=== PATIENT | male | born 1945 | race Hispanic/Latino ===

== ENCOUNTER 2018-06-21 21:07 | Observation (INO) | payer MEDICARE, BC ==
[2018-06-21 21:21] VITALS: BMI 35.4
--- NOTE | 2018-06-21 22:43 | ED PDOC ---
Arrival/HPI - General Chief Complaint: Trauma Time Seen by Provider: 06/21/18 21:31 Historian: Patient - History of Present Illness Narrative History of Present Illness (Text): 06/21/18 21:35 Naun Loco is a 73 year old male, whose past medical history includes atrial fibrillation, who presents to the Emergency department status post near-syncopal episode today. Patient states he was at [facility] in [place], getting ready to go home earlier today. Patient states while walking in his hotel room his suddenly fainted but did not completely lose consciousness, notes he was still awake, alert, and aware of his surrounding. Patient reports he fell to the ground and hit his head. did not witness the episode, states she heard the noise when fell. states she found him and notes he was awake and alert. Patient states he was fine throughout the day prior to fall, notes he ate lunch normally. Patient denies any dizziness, headache, or chest pain prior to the near-syncopal episode. Patient states his hotel room was very hot and attributes the near-syncopal episode to this. Patient also denies any fever, nausea, vomiting, or any other complaints. PMD Andrea Peer Tutor Isela Symptom Onset: Sudden Symptom Course: Improving Activities at Onset: Light Context: Home Past Medical History - Provider Review Nursing Documentation Reviewed: Yes - Cardiac Hx Cardiac Disorders: Yes Hx Atrial Fibrillation: Yes Hx Hypertension: Yes - Neurological Hx Syncope: Yes - Renal Other/Comment: Overactive Bladder - Musculoskeletal/Rheumatological Hx Arthritis: Yes Hx Back Pain: Yes - Psychiatric Hx Anxiety: Yes Hx Depression: Yes Hx Substance Use: No Family/Social History - Physician Review Nursing Documentation Reviewed: Yes Family/Social History: Unknown Family HX Smoking Status: Never Smoked Hx Alcohol Use: Yes (Wine) Frequency of alcohol use: Few days per week Hx Substance Use: No Allergies/Home Meds Allergies/Adverse Reactions: Allergies No Known Allergies Allergy (Verified 06/21/18 21:19) Home Medications: Home Meds Medication Instructions Recorded Confirmed Alprazolam [Xanax] 0.5 mg PO BID PRN 06/21/18 06/21/18 Carvedilol [Coreg] 12.5 mg PO DAILY 06/21/18 06/21/18 Cyclobenzaprine [Cyclobenzaprine 10 mg PO TID PRN 06/21/18 06/21/18 HCl] Gabapentin [Neurontin] 300 mg PO TID 06/21/18 06/21/18 Losartan [Cozaar] 40 mg PO DAILY 06/21/18 06/21/18 Losartan/Hydrochlorothiazide 1 each PO BID 06/21/18 06/21/18 [Losartan-Hctz 50-12.5 mg Tab] Meloxicam [Mobic] 15 mg PO DAILY PRN 06/21/18 06/21/18 Oxybutynin XL [Ditropan XL] 10 mg PO DAILY 06/21/18 06/21/18 Sertraline [Zoloft] 50 mg PO DAILY 06/21/18 06/21/18 Simvastatin [Zocor] 40 mg PO HS 06/21/18 06/21/18 Warfarin [Coumadin] 5 mg PO DAILY 06/21/18 06/21/18 Review of Systems - Physician Review All systems were reviewed & negative as marked: Yes - Review of Systems Constitutional: Normal. absent: Fevers Respiratory: Normal. absent: SOB, Cough Cardiovascular: Syncope (+near-syncopal) Gastrointestinal: Normal. absent: Nausea, Vomiting Neurological: Normal. absent: Headache, Dizziness Physical Exam Vital Signs Reviewed: Yes Vital Signs Temp Pulse Resp BP Pulse Ox 06/21/18 21:21 98.4 F 102 H 20 139/74 97 Temperature: Afebrile Blood Pressure: Normal Pulse: Regular Respiratory Rate: Normal Appearance: Positive for: Well-Appearing, Non-Toxic, Comfortable Pain Distress: None Mental Status: Positive for: Alert and Oriented X 3 - Systems Exam Head: Present: Atraumatic, Normocephalic Pupils: Present: PERRL Extroacular Muscles: Present: EOMI Conjunctiva: Present: Normal Mouth: Present: Moist Mucous Membranes Neck: Present: Normal Range of Motion. No: Meningeal Signs, MIDLINE TENDERNESS, Paraspinal Tenderness Respiratory/Chest: Present: Clear to Auscultation, Good Air Exchange. No: Respiratory Distress, Accessory Muscle Use Cardiovascular: Present: Regular Rate and Rhythm, Normal S1, S2. No: Murmurs Abdomen: No: Tenderness, Distention, Peritoneal Signs Back: Present: Normal Inspection. No: CVA Tenderness, Midline Tenderness, Paraspinal Tenderness Upper Extremity: Present: Normal Inspection. No: Cyanosis, Edema Lower Extremity: Present: Normal Inspection. No: Edema Neurological: Present: GCS=15, CN II-XII Intact, Speech Normal, Motor Func Grossly Intact, Normal Sensory Function, Normal Cerebellar Funct Skin: Present: Warm, Dry, Normal Color. No: Rashes Psychiatric: Present: Alert, Oriented x 3, Normal Insight, Normal Concentration Medical Decision Making ED Course and Treatment: 06/21/18 21:35 Impression: 73 year old male presents status post near-syncopal episode today. Plan: -- CT Head w/o contrast -- EKG -- Chest X-ray -- Labs, cardiac enzymes, BNP -- Urinalysis, urine cultures -- Reassess and disposition Progress Notes: CXR : NAD. EKG : A fib w/ PVCs at 95 bpm, no acute ST changes. Labs reviewed and wnl. On reevaluation, patient is smiling, remains awake alert and oriented 3 in no acute distress. Repeat neuro exam shows no focal findings. Diagnostic results d/w the patient. Case d/w Dr. Fierro, she agrees with plan for observation to remote tele with consult to Dr. Weiss. Bridge orders placed. Patient is in agreement with plan for further observation. - RAD Interpretation Narrative RAD Interpretations (Text): CT Head: Findings: The ventricles and sulci are symmetric but prominent in size bilaterally. There are periventricular areas of low attenuation throughout the deep white matter. There is no evidence of acute hemorrhage or infarct. There is no midline shift, mass effect, or extra-axial fluid collection. The osseous structures are unremarkable. The visualized paranasal sinuses demonstrated diffuse fluid and mucosal thickening, most severe in the right maxillary sinus, left sphenoid sinus and ethmoid sinuses bilaterally. Impression: 1. No acute hemorrhage or infarct. Findings are consistent with mild age-related atrophy and chronic small vessel ischemic disease. 2. Sinusitis. Electronically signed on Jun 22, 2018 12:03:19 AM EST by: Rodrick Coates M.D., MARIA L Certified By ABR & CBCCT Fellowship Trained MRI and CT Specialist Radiology Orders: 06/21/18 21:31 HEAD W/O CONTRAST [CT] Stat 06/21/18 21:36 CHEST ONE VIEW [RAD] Stat Manager Reliability: Radiologist - PA / REVOLVING FI[employer] ASSEMBLER / Resident Statement MD/DO has reviewed & agrees with the documentation as recorded. - Scribe Statement The provider has reviewed the documentation as recorded by the Wanda Jaramillo Provider Scribe Attestation: All medical record entries made by the Husseinibkaitlin were at my direction and personally dictated by me. I have reviewed the chart and agree that the record accurately reflects my personal performance of the history, physical exam, medical decision making, and the department course for this patient. I have also personally directed, reviewed, and agree with the discharge instructions and disposition. Disposition/Present on Arrival - Present on Arrival Any Indicators Present on Arrival: No History of DVT/PE: No History of Uncontrolled Diabetes: No Urinary Catheter: No History of Decub. Ulcer: No History Surgical Site Infection Following: None - Disposition Have Diagnosis and Disposition been Completed?: Yes Diagnosis: Near syncope, Head injury Disposition: HOSPITALIZED Disposition Time: 00:00 Patient Plan: Observation (to remote tele) Condition: STABLE
[2018-06-21 22:54] LABS: BASO # 0.01 K/mm3 (0.0-2.0); BASO % 0.1 % (0.0-3.0); EOS % 0.2 % (1.5-5.0); GRAN # 10.29 (1.4-6.5); GRAN % 77.8 % (50.0-68.0); HEMOGLOBIN 14.4 g/dL (14.0-18.0); LYMPH # 1.4 (1.2-3.4); LYMPH % 10.9 % (22.0-35.0); MEAN CELL VOLUME 101.2 fl (80.0-105.0); MEAN CORPUSCULAR HEMOGLOBIN 34.2 pg (25.0-35.0); MEAN CORPUSCULAR HGB CONC 33.8 g/dl (31.0-37.0); MEAN PLATELET VOLUME 9.7 fl (7.0-11.0); MONO # 1.5 (0.1-0.6); RBC 4.21 10^6/uL (3.5-6.1); RED CELL DISTRIBUTION WIDTH 13.3 % (11.5-14.5); WHITE BLOOD COUNT 13.2 10^3/uL (4.5-11.0)
[2018-06-21 23:02] LABS: INR 2.82; PARTIAL THROMBOPLASTIN TIME 44.7 Seconds (25.1-36.5); PROTHROMBIN TIME 32.8 SECONDS (9.4-12.5)
[2018-06-21 23:03] LABS: ALB/GLOB RATIO 1.3 (1.1-1.8); ALBUMIN 4.2 g/dL (3.0-4.8); ALT/SGPT 46 U/L (7-56); AST/SGOT 53 U/L (17-59); BLOOD UREA NITROGEN 21 mg/dL (7-21); CALCIUM 9.2 mg/dL (8.4-10.5); GFR NON-AFRICAN AMERICAN > 60
[2018-06-21 23:14] LABS: B-TYPE NATRIURETIC PEPTIDE 1020 pg/mL (0-450); TROPONIN I 0.02 ng/mL
[2018-06-21 23:21] LABS: CK-MB 8.6 ng/mL (0.0-3.6)
[2018-06-21 23:51] LABS: URINE BILIRUBIN NEGATIVE (NEGATIVE); URINE BLOOD MODERATE (NEGATIVE); URINE GLUCOSE (UA) NEGATIVE (NEGATIVE); URINE LEUKOCYTE ESTERASE MODERATE Leu/uL (NEGATIVE); URINE PROTEIN NEGATIVE mg/dL (<30 mg/dL); URINE UROBILINOGEN 0.2 E.U./dL (<1 E.U./dL)
[2018-06-21 23:58] LABS: URINE APPEARANCE SL CLOUDY (CLEAR); URINE COLOR YELLOW (YELLOW)
[2018-06-22 00:08] LABS: URINE BACTERIA MANY (NEG); URINE EPITHELIAL CELLS 0 - 2 /hpf (0-5)
[2018-06-22 02:33] VITALS: RESP 20
[2018-06-22 07:14] VITALS: O2SAT 96
[2018-06-22 08:11] LABS: INR 2.4; PROTHROMBIN TIME 28.1 SECONDS (9.4-12.5)
--- NOTE | 2018-06-22 09:05 | CT ---
Date of service: 06/21/2018 PROCEDURE: CT HEAD WITHOUT CONTRAST. HISTORY: trauma COMPARISON: None available. TECHNIQUE: Axial computed tomography images were obtained through the head/brain without intravenous contrast. Radiation dose: Total exam DLP = 910.99 mGy-cm. This CT exam was performed using one or more of the following dose reduction techniques: Automated exposure control, adjustment of the mA and/or kV according to patient size, and/or use of iterative reconstruction technique. FINDINGS: HEMORRHAGE: No intracranial hemorrhage. BRAIN: No mass effect or edema. No atrophy or chronic microvascular ischemic changes. VENTRICLES: Unremarkable. No hydrocephalus. CALVARIUM: Unremarkable. PARANASAL SINUSES: Sinus disease. MASTOID AIR CELLS: Unremarkable as visualized. No inflammatory changes. OTHER FINDINGS: None. IMPRESSION: No acute intracranial hemorrhage.
--- NOTE | 2018-06-22 09:15 | CARD ---
APPROVED REPORT Date of service: 06/21/2018 EKG Measurement Heart [id number] <Conclusion> Atrial fibrillation with premature ventricular or aberrantly conducted complexes Left anterior fascicular block Abnormal ECG
--- NOTE | 2018-06-22 09:35 | RAD ---
Date of service: 06/21/2018 PROCEDURE: CHEST RADIOGRAPH, 1 VIEW HISTORY: fall COMPARISON: None available. FINDINGS: LUNGS: Clear. PLEURA: No pneumothorax or pleural fluid seen. CARDIOVASCULAR: No aortic atherosclerotic calcification present. Normal. OSSEOUS STRUCTURES: No significant abnormalities. VISUALIZED UPPER ABDOMEN: Normal. OTHER FINDINGS: None. IMPRESSION: No active disease.
--- NOTE | 2018-06-22 12:53 | CON ---
DATE: 06/22/2018 INDICATION: Syncope. HISTORY OF PRESENT ILLNESS: This is a 73-year-old male, known to our practice with chronic AFib, on warfarin, who experienced a syncopal episode yesterday while in [place]. He was in his hotel room and slumped to the floor. He does not remember what happened. This was witnessed by several people. He hit his head when he fell, he woke up, he felt well, and did not remember what happened, he limoed back to [place] and was taken to the emergency room and admitted to telemetry. This morning he feels well. He does not remember the events. He had no chest pain or shortness of breath that he recalls. No palpitations. This morning, he is asymptomatic. There is no chest pain, shortness of breath, orthopnea, lightheadedness, dizziness, vertigo, edema, claudication, fever, chills, cough, sputum production, hemoptysis, abdominal pain, nausea, vomiting, diarrhea, constipation, or melena. PAST MEDICAL HISTORY: His past medical history is notable for chronic AFib, he is on warfarin. He has a history of hypertension, hyperlipidemia, CAD with remote PCI, mild MR, neuropathy, sleep apnea and obesity. There is no history of rheumatic fever, myocardialinfarction, angina, congestive heart failure, diabetes, stroke, TIA or gout. MEDICATIONS: At the time of admission include Xanax, Coreg, cyclobenzaprine, gabapentin, losartan/HCT, Mobic, Ditropan, Zoloft, Zocor, warfarin. ALLERGIES: NO MEDICATION ALLERGIES REPORTED. SOCIAL HISTORY: He lives at home. He is retired. He is ambulatory. He does not smoke. He drinks wine socially, often several times in a week. He consumed alcohol yesterday, but not a lot he says. FAMILY HISTORY: Noncontributory. REVIEW OF SYSTEMS: Ten-point review of systems otherwise unremarkable except as noted above. PHYSICAL EXAMINATION: GENERAL: He is a well-developed male, lying in bed in telemetry, in no acute distress. VITAL SIGNS: Notable for AFib, 73-102 beats per minute, afebrile. Blood pressure 113/74, respirations 20, O2 sat is 96-98% on room air. HEENT: Exam reveals no neck vein distention, thyromegaly, or carotid bruits. Mucous membranes moist. Conjunctivae pink. NECK: Supple. LUNGS: Lung gomran clear. HEART: Examination of the heart revealed normal first and second heart sounds, irregular rate, PMI not palpable. ABDOMEN: Soft. Bowel sounds present. No mass, organomegaly, tenderness, rebound, guarding, CVA tenderness, or palpable abdominal aortic aneurysm. EXTREMITIES: Exam revealed no cyanosis, clubbing or edema. NEUROLOGICAL: Awake, alert, oriented. PSYCHIATRIC: Normal as to mood and affect. SKIN: Warm and dry. No rash or cellulitis. LABORATORY AND IMAGING STUDIES: A chest x-ray was done, it is not interpreted yet. There is no CHF, pneumonia or infiltrate by my reading. A CT scan of the head was done. Apparently, it was unremarkable in the ER, but the formal reading is not yet available. White count elevated at 13,200, hemoglobin 14.4, hematocrit 42.6, platelet count 126,000, INR 2.8 yesterday, 2.4 today. PT 28.1, PTT 44.7. Electrolytes, BUN, creatinine, blood sugar, magnesium, LFTs, all unremarkable except for total bilirubin of 1.8. CK was elevated at 285. Troponins were negative x2. BNP 1020. Urinalysis is noted and is abnormal. IMPRESSION: Naun Loco is a 73-year-old man with chronic atrial fibrillation on Coumadin, who suffered a syncopal episode while in his hotel room in [place]. This was witnessed. He does not recall the events. Apparently, he passed out briefly, but felt well and travels alone in a Limo car and was taken to the emergency room in [facility]. Subsequently, he has felt well. Telemetry has been benign. PLAN: At this time, he will have postural vital signs. We will continue his usual medications, that is we will continue his usual cardiac medications including carvedilol, warfarin, losartan/hydrochlorothiazide, Lipitor and replace with Zocor, Xanax, Ditropan. I will review his office records. He can be out of bed and ambulate if his postural vital signs are unremarkable. A CT scan of the head was done, we await the formal report. I will order an echocardiogram. The stress test is scheduled for August. I will discuss possibly moving this up in view of his recent symptomatology. Manuel Mehta MD [facility]
--- NOTE | 2018-06-22 18:14 | US ---
PROCEDURE: Bilateral carotid artery duplex ultrasound HISTORY: Carotid stenosis syncope PHYSICIAN(S): Luis White MD. TECHNIQUE: Duplex sonography and color-flow Doppler were used to evaluate the carotid bifurcations and limited segments of the vertebral arteries bilaterally. The exam is somewhat limited by tortuous vessels. FINDINGS: There is moderate smooth heterogeneous plaque noted at the carotid bifurcations bilaterally. The peak systolic velocity in the proximal right internal carotid artery is 146 cm/sec. This corresponds to a 40-59 percent proximal right ICA stenosis. Normal systolic velocities are noted in the proximal right external carotid artery. There is antegrade flow in the right vertebral artery. The peak systolic velocity in the proximal left internal carotid artery is 94 cm/sec. This corresponds to a 20 to 39% proximal left ICA stenosis. Normal systolic velocities are noted in the proximal left external carotid artery. There is antegrade flow in the left vertebral artery. IMPRESSION: 1. 40-59 percent proximal right ICA stenosis 2. 20-39 percent proximal left ICA stenosis 3. Antegrade flow in both vertebral arteries.
--- NOTE | 2018-06-23 00:17 | HP ---
DATE OF EXAM: 06/22/2018 HISTORY OF PRESENT ILLNESS: The patient is 73 years old who went to [place] yesterday while he was at the bathroom family heard the bang and when they opened the bathroom, he was on the floor. The patient stated he did not lose consciousness. He has a bad right hip, he lost balance and he fell. Denies any loss of consciousness. He denies any dizziness. He states his son and grandson helped him to get up. Family brought him to [place] and brought to emergency room for further evaluation. By the time I examined the patient, he is doing well and wanting to go home. Denies any chest pain. No nausea or vomiting. No diarrhea. PAST MEDICAL HISTORY: Significant for: 1. Chronic atrial fibrillation. 2. Hypertension. 3. Hyperlipidemia. 4. History of severe right hip arthritis. 5. Congestive heart failure. 6. Anm-ldrlioz-rikofqbkh diabetes. MEDICATIONS AT HOME: He is on Xanax, Coumadin 5 mg daily, Zocor 40 mg daily, Zoloft 50 mg daily, oxybutynin 10 mg at bedtime, mg daily, losartan 50 mg daily, Neurontin 300 three times a day, carvedilol 12.5 daily, and Xanax 0.25 twice a day. SOCIAL HISTORY: He socially drinks, he used to be a heavy smoker. PHYSICAL EXAMINATION: GENERAL: He is awake, alert, oriented, and able to communicate. VITAL SIGNS: He is afebrile, pulse 70, respirations 20, and blood pressure 128/88. LABORATORY DATA: WBC 13.2, hemoglobin 14, hematocrit 42, and platelet 126,000. PT 28.1 and INR 2.40. Chemistry: Sodium 138, potassium 4.5, chloride 102, CO2 of 30, BUN 21, creatinine 0.8, blood sugar , total bilirubin . LDH is 714. CPK 285. BNP 1020. Urinalysis showed moderate blood, positive nitrites and leukocytes. ASSESSMENT: 1. Questionable syncope. 2. Status post fall. 3. Chronic atrial fibrillation. 4. Severe right hip osteoarthritis. 5. Congestive heart failure. PLAN: We will monitor his blood pressure. Continue Coumadin. Monitor PT and INR. Encourage physical therapy. Follow up with , echocardiogram and we will reevaluate in a.m. Morgan Fierro MD [facility] # [phone]
[2018-06-23 06:55] VITALS: BP 139/88; TEMP 97.5
--- NOTE | 2018-06-23 08:03 | CP.PCM.PN ---
Subjective - Date & Time of Evaluation Date of Evaluation: 06/23/18 Time of Evaluation: 07:00 - Subjective Subjective: Stable on 3R. He feels better and wants to go home. No CP,m SOB, Dizziness, Syncope V/S noted. NL postural V/S noted PE: Lungs: clear Cor.: S1S2 Abd.: soft Ext.: no edema Neuro.: alert Labs 06/22 noted: INR= 2.4, trops neg X2 Car. U/S noted: Mod/Mild carotid stenoses Echo: Nl LV. See full report. Objective - Vital Signs/Intake and Output Vital Signs (last 24 hours): Temp Pulse Resp BP Pulse Ox 97.5 F L 80 20 139/88 96 06/23/18 06:00 06/23/18 06:00 06/23/18 06:00 06/23/18 06:00 06/23/18 06:00 - Medications Medications: Current Medications Alprazolam (Xanax) 0.5 mg PO BID PRN; Protocol PRN Reason: Anxiety Alprazolam (Xanax) 0.5 mg PO BID PRN; Protocol PRN Reason: Anxiety Atorvastatin Calcium (Lipitor) 40 mg PO DIN [facility] Last Admin: 06/22/18 18:04 Dose: 40 mg Atorvastatin Calcium (Lipitor) 20 mg PO HS [facility] Carvedilol (Coreg) 12.5 mg PO DAILY [facility] Gabapentin (Neurontin) 300 mg PO TID [facility]; Protocol Hydrochlorothiazide (Microzide) 12.5 mg PO DAILY [facility] Last Admin: 06/22/18 10:28 Dose: 12.5 mg Losartan Potassium (Cozaar) 50 mg PO DAILY [facility] Meloxicam (Mobic) 15 mg PO DAILY PRN PRN Reason: Arthritis Non-Formulary Medication (Oxybutynin Xl [Ditropan Xl]) 10 mg PO DAILY [facility] Oxybutynin Chloride (Ditropan Tab) 10 mg PO DAILY [facility] Last Admin: 06/22/18 10:28 Dose: 10 mg Sertraline HCl (Zoloft) 50 mg PO DAILY [facility] Warfarin Sodium (Coumadin) 5 mg PO 1800 [facility]; Protocol Last Admin: 06/22/18 18:04 Dose: 5 mg - Labs Labs: 06/21/18 22:41 06/21/18 22:41 PT 28.1 SECONDS (9.4-12.5) H 06/22/18 07:50 INR 2.40 06/22/18 07:50 APTT 44.7 Seconds (25.1-36.5) H 06/21/18 22:41 Assessment and Plan - Assessment and Plan (Free Text) Assessment: Syncope in AC Chronic AF Mild MR HBP HLD CAD/Remote PCI Neuropathy CORI Abn U/A: urine culture pending. Plan: OOB ad kamaljit Out-pt nuclear stress test soon. Call re further sxs.
--- NOTE | 2018-06-23 09:30 | CARD ---
APPROVED REPORT Date of service: 06/22/2018 EXAM: Two-dimensional and M-mode echocardiogram with Doppler and color Doppler. Other Information Quality : AverageRhythm : INDICATION Syncope 2D DIMENSIONS Left Atrium (2D)4.4 (1.6-4.0cm)IVSd1.1 (0.7-1.1cm) LVDd5.4 (3.9-5.9cm)PWd1.2 (0.7-1.1cm) LVDs3.6 (2.5-4.0cm)FS (%) 33.6 % LVEF (%)62.0 (>50%) M-Mode DIMENSIONS Aortic Root3.80 (2.2-3.7cm)Aortic Cusp Exc.1.90 (1.5-2.0cm) Aortic Valve AoV Peak Tzoennlm551.0cm/s Mitral Valve E/A ratio0.0 TDI E/Lateral E'0.0E/Medial E'0.0 Pulmonary Valve PV Peak Fzekimgp76.4cm/sPV Peak Grad.3mmHg Tricuspid Valve TR Peak [id number]/sRAP [id number] Peak Gr.33mmHg [id number] LEFT VENTRICLE The left ventricle is normal size. There is normal left ventricular wall thickness. The left ventricular function is normal. The left ventricular ejection fraction is within the normal range. There is normal LV segmental wall motion. RIGHT VENTRICLE The right ventricle is normal size. ATRIA The left atrium is moderately dilated. The right atrium is mildly dilated. The interatrial septum is intact with no evidence for an atrial septal defect. AORTIC VALVE The aortic valve is normal in structure. MITRAL VALVE The mitral valve is normal in structure. Mitral regurgitation is mild. TRICUSPID VALVE The tricuspid valve is normal in structure. There is mild tricuspid regurgitation. PULMONIC VALVE The pulmonic valve is not well visualized. GREAT VESSELS The aortic root is normal in size. PERICARDIAL EFFUSION There is no pericardial effusion. <Conclusion> The left ventricle is normal size. There is normal left ventricular wall thickness. The left ventricular function is normal. Mitral regurgitation is mild. There is mild tricuspid regurgitation.
[2018-06-23] MEDS ORDERED: OXYBUTYNIN 10 MG PO SCH (10:00)
[2018-06-23 10:47] VITALS: PULSE 85
--- NOTE | 2018-06-23 21:02 | DS ---
HISTORY OF PRESENT ILLNESS: The patient is 73 years old who was admitted because of near syncope, although the patient statement is different than the family's statement. The patient states he was in the bathroom, he lost balance since he has a bad left hip and he was found on the floor when family heard the bang, they came in and helped him to get up. He was in [place], they drove back to [place] and was evaluated in the ER. His initial workup is unremarkable, wanted to go home, feels fine, and ambulatory. PHYSICAL EXAMINATION: VITAL SIGNS: He is afebrile, pulse 85, respirations 20, and blood pressure 139/88. LUNGS: Bilateral fair airflow. No rhonchi or crackles. HEART: S1 and S2 audible. ABDOMEN: Soft, obese, and nontender. No rebound. No guarding. NEUROLOGIC: The patient is awake, alert, oriented, communicative, and ambulatory. LABORATORY DATA: His PT 28.1 and INR 2.40. His urine culture shows positive Gram-negative rods. ASSESSMENT: 1. Status post near-syncope. 2. Hypertension. 3. Chronic atrial fibrillation. 4. Right hip osteoarthritis. 5. Hypertension. 6. Hyperlipidemia. 7. Benign prostatic hypertrophy. PLAN: The patient is being discharged home today. We will resume his medication including warfarin, Zocor, Zoloft, oxybutynin, Mobic, losartan, gabapentin, Flexeril, carvedilol, and Xanax. The patient will discharge today; however, I did not have culture and sensitivity back here, so I will contact the patient to order for antibiotic. Morgan Fierro MD
== END 2018-06-23 11:41 | disposition home or self-care (01) ==
LOC: ED 21:07 → ERH 06-22 00:15 → 3RSO 06-22 00:50
PROVIDERS: ADMIT Internal Medicine; ATTEND Internal Medicine
DX: R55 Syncope and collapse (principal); I11.0 Hypertensive heart disease with heart failure; I25.10 Atherosclerotic heart disease of native coronary artery without angina pectoris; E11.9 Type 2 diabetes mellitus without complications; E78.5 Hyperlipidemia, unspecified; G47.33 Obstructive sleep apnea (adult) (pediatric); G62.9 Polyneuropathy, unspecified; I48.2 Chronic atrial fibrillation; I50.9 Heart failure, unspecified; I34.0 Nonrheumatic mitral (valve) insufficiency; M16.11 Unilateral primary osteoarthritis, right hip; N32.81 Overactive bladder; N40.0 Benign prostatic hyperplasia without lower urinary tract symptoms; S09.90XA Unspecified injury of head, initial encounter; W19.XXXA Unspecified fall, initial encounter; Z79.01 Long term (current) use of anticoagulants; Z79.1 Long term (current) use of non-steroidal anti-inflammatories (NSAID); Z79.899 Other long term (current) drug therapy; Z87.891 Personal history of nicotine dependence
CPT/HCPCS: 36415; 70450; 71045; 80053; 81001; 82550; 82553; 83615; 83735; 83880; 84484; 85025; 85610; 85730; 87086; 87181; 93005; 93306; 93880; 99285; G0378

== ENCOUNTER 2018-09-16 06:03 | Day surgery (SDC) | payer MEDICARE, BC ==
[2018-09-14 11:52] VITALS: BMI 35.9
[2018-09-16 06:56] LABS: INR 1.25; PROTHROMBIN TIME 14.1 SECONDS (9.4-12.5)
[2018-09-16] MEDS ORDERED: Lidocaine 2% Inj (20ml) ONE (07:16)
[2018-09-16] MEDS ORDERED: Iohexol 350mgl/ml 50 ML ONE (07:17)
[2018-09-16] MEDS ORDERED: Iodixanol 320 MG/ML 200 ML BOTTLE IV ONE (07:17)
[2018-09-16] MEDS ORDERED: Phenylephrine 10 mg/ml Inj ONE (07:17)
[2018-09-16] MEDS ORDERED: Nitroglycerin 50mg in D5W 50 MG/250 ML BOTTLE IV ONE (07:17)
[2018-09-16] MEDS ORDERED: Iodixanol 320 MG/ML 100 ML BOTTLE IV ONE (07:17)
[2018-09-16] MEDS ORDERED: Heparin 2,000 ML IV ONE (07:18)
[2018-09-16] MEDS ORDERED: Midazolam 2 MG/2 ML VIAL ONE ×2 (07:25→07:41)
[2018-09-16] MEDS ORDERED: Sodium Chloride 0.9% 1,000 ML IV SCH (08:15)
[2018-09-16 09:37] VITALS: TEMP 97.8
[2018-09-16 09:39] VITALS: RESP 16
[2018-09-16 12:17] VITALS: BP 138/67; PULSE 80; O2SAT 98
--- NOTE | 2018-09-19 10:01 | CARDCATH ---
PROCEDURE DATE: 09/16/2018 CARDIAC CATHETERIZATION REPORT PROCEDURES: 1. Selective left and right coronary angiography. 2. Left ventriculography. 3. Right femoral arteriography. 4. Angio-seal deployment. HISTORY: This is a 73-year-old male with known coronary artery disease, who underwent recent stress test showing evidence of recurrent ischemia. Cardiac catheterization was advised. Indications as above. FINDINGS: HEMODYNAMICS: The aortic pressure was 120/70. Left ventricular pressure 120/12. CORONARY ANATOMY: 1. The left main stem was mildly calcified and normal. 2. The left anterior descending artery was mildly calcified in its proximal portion and had mild irregularities. The mid distal segment of vessel was fairly small, but had no evidence of obstructive lesion. The diagonal branch had a widely patent stent in its proximal segments. 3. The left circumflex artery gave rise to a large bifurcating obtuse marginal branch. The proximal surface had a 30% proximal tapering. The obtuse marginal branch was large with no significant disease. The distal circumflex had 40% narrowing after the takeoff of the obtuse marginal branch. 4. The right coronary artery was in moderate size and dominant. This had mild irregularities in its proximal and early distal segment. The posterior descending artery no significant disease. The posterolateral branch was fairly small. LEFT VENTRICULOGRAPHY: A hand injection was performed in the left ventricle revealing normal wall motion with an ejection fraction of 55%. There was no aortic valve gradient on new catheter pull back. Mitral regurgitation was not assessed. RIGHT FEMORAL ARTERIOGRAPHY: The right femoral arteriogram revealed no evidence of significant disease and appropriate level of arterial puncture. The puncture site was closed with deployment of an Angio-Seal device. CONCLUSION: 1. Mild diffuse three-vessel coronary artery disease. 2. Patent diagonal stent. 3. Normal left ventricular systolic function. RECOMMENDATIONS: Given the above findings, continued risk factor control is advised. Norberto Chaudhari MD cc: Becky Mendez MD MTDD
== END 2018-09-16 13:15 | disposition home or self-care (01) ==
LOC: CATH 06:03
PROVIDERS: ATTEND Internal Medicine Cardiovascular Disease
DX: I25.10 Atherosclerotic heart disease of native coronary artery without angina pectoris (principal); I10 Essential (primary) hypertension; J43.9 Emphysema, unspecified; R06.00 Dyspnea, unspecified; E66.9 Obesity, unspecified; R94.39 Abnormal result of other cardiovascular function study
CPT/HCPCS: 36415; 85610; 86850; 86900; 93458; 99152; 99153; C1769; C2629; J1644; J2250; J3010; J7030; Q9966; Q9967 ×2